=== PATIENT | female | born 1955 | race Caucasian/White ===

== ENCOUNTER 2023-07-18 12:28 | Observation (INO) ==
[2023-07-18 13:07] LABS: Basophils # (auto) 0.06 K/uL (0.00-0.20); Basophils % (auto) 1.1 %; Eosinophils # (auto) 0.32 K/uL (0.00-0.50); Eosinophils % (auto) 6.1 %; Hematocrit (blood only) 46.6 % (37.0-47.0); Hemoglobin 15.3 g/dl (12.0-16.0); Immature Granulocytes # (auto) 0.02 K/uL (0.01-0.20); Immature Granulocytes % (auto) 0.4 %; Lymphocytes # (auto) 1.35 K/uL (1.20-3.40); Lymphocytes % (auto) 25.9 %; Mean Corpuscular Hemoglobin 29.4 pg (25.0-34.0); Mean Corpuscular Hgb Conc 32.8 g/dL (32.0-36.0); Mean Corpuscular Volume 89.4 fL (80.0-100.0); Mean Platelet Volume 10.3 fL (9.4-12.4); Monocytes # (auto) 0.36 K/uL (0.11-0.59); Monocytes % (auto) 6.9 %; Neutrophils # (auto) 3.11 K/uL (1.40-6.50); Neutrophils % (auto) 59.6 %; Platelet Count 226 K/uL (130-400); RDW Coefficient of Variation 13.7 % (11.5-14.5); RDW Standard Deviation 44.5 fL (36.4-46.3); Red Blood Count 5.21 M/uL (4.20-5.40); White Blood Count 5.22 K/ul (4.8-10.8)
[2023-07-18 13:12] LABS: Alanine Aminotransferase 13 U/L (7-52); Albumin Globulin Ratio 1.8 (0.9-2); Albumin Level 4.9 gm/dl (3.4-5.0); Alkaline Phosphatase 34 U/L (34-104); Anion Gap 9 (3-11); Aspartate Aminotransferase 14 U/L (13-39); BUN Creatinine Ratio 24.2 (10-20); Bilirubin,Total 0.6 mg/dl (0.2-1.0); Blood Urea Nitrogen 15 mg/dl (6-23); Calcium 10.3 mg/dl (8.6-10.3); Carbon Dioxide 27 mmol/L (21-32); Chloride 103 mmol/L (98-107); Est GFR (African American) 105.9 ml/min; Est GFR (Non-African American) 91.4 ml/min; Globulin 2.8 gm/dl (2.5-4.0); Glucose 136 mg/dl (70-99(Fasting)); Sodium 139 mmol/L (136-145); Total Protein 7.7 gm/dl (6.0-8.3)
[2023-07-18 13:17] LABS: Troponin I High Sensitivity < 2.3 pg/ml (0-14)
[2023-07-18 14:04] LABS: Partial Thromboplastin Time 27.7 Seconds (21.0-31.0); Prothrombin Time 10.9 Seconds (9.0-12.0)
--- NOTE | 2023-07-18 14:37 | XRay Report ---
XR chest 1V not portable CLINICAL HISTORY: Chest pain, nonspecific TECHNIQUE: Single frontal radiograph of the chest was obtained. Comparison: None available at the time of this dictation. FINDINGS: No lines and tubes are seen. The cardiomediastinal silhouette is normal. The lungs are clear. No evid ence of pleural effusion or pneumothorax. IMPRESSION: No acute chest disease. ACT 112: Negative or not required by law. Electronically signed by: Jimmy Hobbs M.D. 07/18/2023 2:36 PM
[2023-07-18 15:27] LABS: Influenza A virus by PCR Negative (Neg); Influenza B virus by PCR Negative (Neg); RSV by PCR Negative (Neg); SARS CoV2 RNA(COVID-19) Ceph NEGATIVE (Negative)
--- NOTE | 2023-07-18 15:49 | Emergency Department Note ---
Impression & Plan Atypical chest pain ED Provider Note NAME: URMILA ESPITIA AGE: 68 SEX: F : 1955 ARRIVES VIA: Walk-In INFORMANT: Patient, ED PROVIDER(S): Senthil Carr MD CHIEF COMPLAINT: Chest pain HPI: This is a 68-year-old female presenting for chest pain. Patient states that for the past 24 to 48 hours she has noticed pain in the top of her chest. She notes it is bilateral left and right. It is now progressively to the point where it is radiating to bilateral arms as well as going into her neck. She notes some lightheadedness with this. She notes that the pain is actually worse with exertion. She notes she feels her legs are weak as well. She did not note vertigo. She states she is a patient of Dr. Fitzpatrick, cardiology. She has had a stress test in the past 2 years. Otherwise she notes no shortness of breath at rest. No nausea or vomiting. No diarrhea. ROS: See above HPI for pertinent positives & negatives. A total of 10 systems reviewed and were otherwise negative. PAST MEDICAL HISTORY: See Below PAST SURGICAL HISTORY: See Below FAMILY HISTORY: See Below SOCIAL HISTORY: See Below HOME MEDICATIONS: See Below ALLERGIES: See Below VITALS: See Below PHYSICAL EXAMINATION: General: resting comfortably in no acute distress Head: Normocephalic and atraumatic Eyes: Normal inspection, extraocular muscles intact, no conjunctival pallor Ear, nose, throat: Normal external exam Neck: Normal range of motion Respiratory: Patient is in no respiratory distress, lungs clear to auscultation bilaterally Cardiovascular: RRR without murmur appreciated GI: soft, nontender, no guarding or rebound Extremities: pulses intact with good cap refills, no LE pitting edema or calf tenderness Neuro: The patient awake and alert, appropriately conversive,no focal decifits Skin: Warm, dry, and intact MEDICAL DECISION MAKING: This is a 68-year-old female presenting for chest pain. Patient has are concerning for ACS clinically. Her EKG is reviewed and is otherwise reassuring. We will get basic lab work, chest x-ray, further differentiation of pain. Low concern for PE in this patient. Patient's blood work is reassuring, negative troponin, otherwise within normal limits. Patient's chest x-ray reveals no acute process. Due to persistent chest pain and the clinical story, will admit for further ACS rule out and chest pain work-up. Dr. Hatch, hospitalist, does request CTA PE protocol at this time as part of further work-up. We will order this. Triage Nursing notes reviewed. Prior medical records reviewed Vital Signs: reviewed and remarkable for no significant abnormalities Differential diagnosis: ACS, PE, dissection ER treatment provided: See below Diagnostics interpreted by me: Cardiac Monitoring: An order was placed for continuous cardiac monitoring. The monitor shows a rate of 78 with sinus rhythm Laboratory studies: As stated above and show below. Imaging studies: See below. Radiographic imaging was reviewed by myself Past Med/Surg History Medical History (Updated 07/18/23 @ 16:59 by Senthil Carr MD) DM (diabetes mellitus) Hypertension Insomnia Social History Smoking Status: Never smoker Preferred Language: [place] Leonean Feels Safe at Home: Yes Allergies Allergies Allergy/AdvReac Type Severity Reaction Status Date / Time No Known Allergies Allergy Unverified 03/23/14 08:08 Home Meds Home Medications Medication Instructions Recorded Confirmed CHOLECALCIFEROL (Vitamin D) 2,000 unit PO BID #0 tabs 03/23/14 Rosuvastatin Calcium (Crestor) 20 mg PO DAILY ##0 03/23/14 07/18/23 amlodipine 5 mg tablet 5 mg PO DAILY 07/18/23 07/18/23 levothyroxine 88 mcg tablet 88 mcg PO DAILY 07/18/23 07/18/23 (Levoxyl) lisinopril 5 mg tablet 5 mg PO DAILY 07/18/23 07/18/23 lorazepam 1 mg tablet 1 mg PO QPM PRN Insomnia 07/18/23 07/18/23 metformin 1,000 mg tablet 1,000 mg PO BID 07/18/23 07/18/23 metoprolol succinate 25 mg 25 mg PO BID 07/18/23 07/18/23 tablet,extended release 24 hr Results & Data (ED) Vital Signs Vital Signs - 24 hr 07/18/23 12:31 07/18/23 14:36 07/18/23 14:37 Temperature 36.7 C Temperature Source Temporal Artery Scan Pulse Rate 91 H Pulse Rate [Apical] 83 Respiratory Rate 17 16 Respiratory Effort / Characteristics Non-Labored Spontaneous Respiratory Depth Normal Respiratory Pattern Regular Blood Pressure 178/83 H Blood Pressure [Left Arm] 131/81 Blood Pressure Mean 114 Blood Pressure Mean [Left Arm] 97 Blood Pressure Position Sitting Pulse Oximetry 99 97 Oxygen Delivery Method Room Air Room Air Room Air Sepsis Recent Fever Within 48 Hours No Sepsis New/Unexplained Change in Mental Status No Sepsis Action Taken by Nursing No Action Required 07/18/23 14:39 Temperature Temperature Source Pulse Rate 78 Pulse Rate [Apical] Respiratory Rate Respiratory Effort / Characteristics Respiratory Depth Respiratory Pattern Blood Pressure Blood Pressure [Left Arm] Blood Pressure Mean Blood Pressure Mean [Left Arm] Blood Pressure Position Pulse Oximetry Oxygen Delivery Method Sepsis Recent Fever Within 48 Hours Sepsis New/Unexplained Change in Mental Status Sepsis Action Taken by Nursing Laboratory Data 07/18/23 12:43 07/18/23 12:43 Lab Results 07/18/23 07/18/23 07/18/23 Range/Units 12:43 12:43 12:43 WBC 5.22 (4.8-10.8) K/ul RBC 5.21 (4.20-5.40) M/uL Hgb 15.3 (12.0-16.0) g/dl Hct 46.6 (37.0-47.0) % MCV 89.4 (80.0-100.0) fL MCH 29.4 (25.0-34.0) pg MCHC 32.8 (32.0-36.0) g/dL RDW Std Deviation 44.5 (36.4-46.3) fL RDW Coeff of Jamei 13.7 (11.5-14.5) % Plt Count 226 (130-400) K/uL MPV 10.3 (9.4-12.4) fL Immature Gran % (Auto) 0.4 % Neut % (Auto) 59.6 % Lymph % (Auto) 25.9 % [place] % (Auto) 6.9 % Eos % (Auto) 6.1 % Baso % (Auto) 1.1 % Neut # (Auto) 3.11 (1.40-6.50) K/uL Lymph # (Auto) 1.35 (1.20-3.40) K/uL [place] # (Auto) 0.36 (0.11-0.59) K/uL Eos # (Auto) 0.32 (0.00-0.50) K/uL Baso # (Auto) 0.06 (0.00-0.20) K/uL Immature Gran # (Auto) 0.02 (0.01-0.20) K/uL PT 10.9 (9.0-12.0) Seconds INR 1.0 (0.9-1.1) APTT 27.7 (21.0-31.0) Seconds PTT Ratio 1.0 Sodium 139 (136-145) mmol/L Potassium 4.0 (3.5-5.1) mmol/L Chloride 103 (98-107) mmol/L Carbon Dioxide 27 (21-32) mmol/L Anion Gap 9 (3-11) BUN 15 (6-23) mg/dl Creatinine 0.62 (0.6-1.2) mg/dl Est Cr Clr Drug Dosing Not Reportable Est GFR ( Amer) 105.9 ml/min Est GFR (Non-Af Amer) 91.4 ml/min BUN/Creatinine Ratio 24.2 H (10-20) Glucose 136 H (70-99(Fasting)) mg/dl POC Glucose (70-99) mg/dl Calcium 10.3 (8.6-10.3) mg/dl Total Bilirubin 0.6 (0.2-1.0) mg/dl AST 14 (13-39) U/L ALT 13 (7-52) U/L Alkaline Phosphatase 34 (34-104) U/L Troponin I High Sens < 2.3 (0-14) pg/ml Total Protein 7.7 (6.0-8.3) gm/dl Albumin 4.9 (3.4-5.0) gm/dl Globulin 2.8 (2.5-4.0) gm/dl Albumin/Globulin Ratio 1.8 (0.9-2) SARS-CoV-2 (PCR) (Negative) Influenza Type A (PCR) (Neg) Influenza Type B (PCR) (Neg) RSV (RT-PCR) (Neg) 07/18/23 07/18/23 Range/Units 14:30 16:04 WBC (4.8-10.8) K/ul RBC (4.20-5.40) M/uL Hgb (12.0-16.0) g/dl Hct (37.0-47.0) % MCV (80.0-100.0) fL MCH (25.0-34.0) pg MCHC (32.0-36.0) g/dL RDW Std Deviation (36.4-46.3) fL RDW Coeff of Jamie (11.5-14.5) % Plt Count (130-400) K/uL MPV (9.4-12.4) fL Immature Gran % (Auto) % Neut % (Auto) % Lymph % (Auto) % [place] % (Auto) % Eos % (Auto) % Baso % (Auto) % Neut # (Auto) (1.40-6.50) K/uL Lymph # (Auto) (1.20-3.40) K/uL [place] # (Auto) (0.11-0.59) K/uL Eos # (Auto) (0.00-0.50) K/uL Baso # (Auto) (0.00-0.20) K/uL Immature Gran # (Auto) (0.01-0.20) K/uL PT (9.0-12.0) Seconds INR (0.9-1.1) APTT (21.0-31.0) Seconds PTT Ratio Sodium (136-145) mmol/L Potassium (3.5-5.1) mmol/L Chloride (98-107) mmol/L Carbon Dioxide (21-32) mmol/L Anion Gap (3-11) BUN (6-23) mg/dl Creatinine (0.6-1.2) mg/dl Est Cr Clr Drug Dosing Est GFR ( Amer) ml/min Est GFR (Non-Af Amer) ml/min BUN/Creatinine Ratio (10-20) Glucose (70-99(Fasting)) mg/dl POC Glucose 101 H (70-99) mg/dl Calcium (8.6-10.3) mg/dl Total Bilirubin (0.2-1.0) mg/dl AST (13-39) U/L ALT (7-52) U/L Alkaline Phosphatase (34-104) U/L Troponin I High Sens (0-14) pg/ml Total Protein (6.0-8.3) gm/dl Albumin (3.4-5.0) gm/dl Globulin (2.5-4.0) gm/dl Albumin/Globulin Ratio (0.9-2) SARS-CoV-2 (PCR) NEGATIVE (Negative) Influenza Type A (PCR) Negative (Neg) Influenza Type B (PCR) Negative (Neg) RSV (RT-PCR) Negative (Neg) Administered Medications Discontinued Medications Ioversol (Optiray 320 500ml) 115 ml IV ONCE ONE Stop: 07/18/23 16:17 Last Admin: 07/18/23 16:16 Dose: 115 ml Documented By: SNOW Imaging Data Radiologist's Impression: Chest X-Ray 07/18/23 12:34 XR chest 1V not portable CLINICAL HISTORY: Chest pain, nonspecific TECHNIQUE: Single frontal radiograph of the chest was obtained. Comparison: None available at the time of this dictation. FINDINGS: No lines and tubes are seen. The cardiomediastinal silhouette is normal. The lungs are clear. No evidence of pleural effusion or pneumothorax. IMPRESSION: No acute chest disease. ACT 112: Negative or not required by law. Electronically signed by: Jimmy Hobbs M.D. 07/18/2023 2:36 PM Discharge Plan Visit Data Chief Complaint: Chest Pain Stated Complaint: CHEST PAIN ED Provider: Senthil Carr Discharge Problem: Atypical chest pain Forms Stand Alone Forms: My [facility] Prescriptions Prescriptions: No Action CHOLECALCIFEROL (Vitamin D) 1,000 INTER.UNIT tablet 2,000 unit PO BID Qty: 0 Rosuvastatin Calcium (Crestor) 20 MG tablet 20 mg PO DAILY Qty: 0 amlodipine 5 mg tablet 5 mg PO DAILY levothyroxine [Levoxyl] 88 mcg tablet 88 mcg PO DAILY metformin 1,000 mg tablet 1,000 mg PO BID lisinopril 5 mg tablet 5 mg PO DAILY metoprolol succinate 25 mg tablet extended release 24 hr 25 mg PO BID lorazepam 1 mg tablet 1 mg PO QPM PRN (Reason: Insomnia) Referrals Referrals: Patti Carr MD [Primary Care Provider] -
--- NOTE | 2023-07-18 15:53 | History & Physical Report ---
Date of Service July 18, 2023 Assessment & Plan (1) Atypical chest pain: (2) DM (diabetes mellitus): (3) Hypertension: Plan Ms Effie Medina is a 68 year old woman with past medical history remarkable for type II DM, hypothyroidism, GERD, and insomnia presented to [facility] ED due to atypical chest pain. Patient's symptoms are less consistent with ACS after physical examination. Pain is upper chest along jugular notch across bilateral trapezius into bilateral arms, this is occasionally associated with bilateral leg weakness; however, no reports of incontinence reported or persistent numbness and tingling. #Atypical Chest Pain #Chronic neck pain, ?cervical radiculopathy #HTN -Last followed Dr. Morocho 02/2022; 10/2021 exercise stress test negative at that time, EF 60% -Patient with discomfort in front of chest, with pain down both arms, precipitated by exertion, relieved by rest -Given negative cardiac workup, history of negative testing 2021, and physical exam findings, concern for cervical angina 2/2 cervical radiculopathy -Troponin negative, EKG NSR -Continue home Antihypertensives: Amlodipine 5mg, Lisinopril 5mg, Metoprolol XL 25mg BID -Continue daily -Monitor on Telemetry, repeat troponin x2 for ACS r/o -Patient requesting hold on further imaging 2/2 nerves--plan for C-Spine XR in am to eval for foraminal narrowing/signs suspicious of radiculopathic process to ensure proper follow up -Tylenol prn, cyclobenzaprine prn -Carotid duplex to r/o atherosclerotic burden contributing to weakness/symptomology #DMTII, controlled -a1c 5.6% 05/20/2023 -home regimen of Metformin 1000mg BID -ssi with correction factor #HLD -Continue Rosuvastatin 20mg qhs #Hypothyroidism -Continue Levothyroxine 100mcg #Insomnia -Lorazepam qhs DVT SCDs, encourage ambulation per patient request Lytes: replace prn Bowel/GI prn Admission and Anticipated Discharge Date Admission Date: Time spent evaluating patient, direct bedside care, chart review, placing orders, interpretation of diagnostic studies, discussion with consultants, patient, and family members, as well as other required patient management activities is 60 minutes. History of Present Illness Chief Complaint: Chest/neck pain, weakness Primary Care Provider: Patti Carr MD Ms Effie Medina is a 68 year old woman with past medical history remarkable for type II DM, hypothyroidism, GERD, and insomnia presented to [facility] ED due to atypical chest pain. 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 Patient states that during her routine walk (2-3miles daily), she started to feel weakness in her legs and tingling in her bilateral arms. This was associated with a chest pain around the front base of her neck and into bilateral shoulders--after stopping her activity it would resolve. She noted that these symptoms continued and she became worried about cardiac issues. She denies any chest pain at rest, any sensation of palpitations, nausea, vomiting, diaphoresis, orthopnea/PND, edema. She reports dizziness when the discomfort sets in, more lightheaded in quality rather than vertiginous. She denies any focal neuro deficits. Patient does endorse neck discomfort and posterior headache. She denies any visual disturbances, syncope, or dysphagia. Patient is with extreme anxiety, preventing dedicated imaging of head/c-spine. Patient described history of claustrophobia and remarks she would likely need deep sedation before considering due to her fear. In the ED, vitals were notable for BP of 178/83 on presentation, HR of 91 and O2 sat in high 90s on room air. Hypertension resolved upon relaxation and sitting in room. Labs notable for negative troponin, negative resp panel, and stable renal/liver function Imaging unremarkable, CTA EKG NSR No ED interventions performed. Patient to be admitted to med/surg tele for further evaluation and management of atypical chest pain. Allergies Allergy/AdvReac Type Severity Reaction Status Date / Time doxycycline Allergy Intermediate Verified 07/18/23 17:14 amoxicillin [From Augmentin] AdvReac Intermediate Verified 07/18/23 17:14 clavulanic acid AdvReac Intermediate Verified 07/18/23 17:14 [From Augmentin] amoxcillin AdvReac Intermediate Diarrhea Uncoded 07/18/23 17:14 Home Medications Medication Instructions Recorded Confirmed Type CHOLECALCIFEROL (Vitamin D) 2,000 unit PO BID #0 tabs 03/23/14 07/18/23 History Rosuvastatin Calcium (Crestor) 20 mg PO DAILY ##0 03/23/14 07/18/23 History amlodipine 5 mg tablet 5 mg PO DAILY 07/18/23 07/18/23 History levothyroxine 88 mcg tablet 88 mcg PO DAILY 07/18/23 07/18/23 History (Levoxyl) lisinopril 5 mg tablet 5 mg PO BID 07/18/23 07/18/23 History lorazepam 1 mg tablet 1 mg PO QPM PRN Insomnia 07/18/23 07/18/23 History metformin 1,000 mg tablet 1,000 mg PO BID 07/18/23 07/18/23 History metoprolol succinate 25 mg 25 mg PO BID 07/18/23 07/18/23 History tablet,extended release 24 hr Past Med/Surg History Medical History (Updated 07/18/23 @ 16:59 by Senthil Carr MD) DM (diabetes mellitus) Hypertension Insomnia Social History Smoking Status: Never smoker Preferred Language: Cuban Feels Safe at Home: Yes Review of Systems Review of Systems: Constitutional: (-) fever/chills, (-) recent loss of weight, (-) appetite changes, (-) night sweats. Head: (-) headache, (+) dizziness. Eye: (-) blurring of vision, (-) double vision, (-) redness. Ear: (-) hearing loss, (-) discharge, (-) vertigo Nose: (-) discharge, (-) bleeding, (-) congestion, (-) post nasal drip. Throat: (-) sore throat, (-) hoarseness of voice, (-) odynophagia. Cardiovascular: (+) chest pain, (-) palpitations, (-) syncope, (-) orthopnea, (- ) PND, (-) leg swelling. Respiratory: (-) shortness of breath, (-) cough, (-) wheezing, (-) hemoptysis. Neuro: (+) weakness in extremities, (-) numbness, (+) tingling, (-) tremor. Gastrointestinal: (-) belly pain, (-) belly distension, (-) nausea, (-) vomiting, (-) diarrhea, (-) constipation, Genitourinary: (-) hematuria, (-) dysuria, (-) polyuria, (-) hesitancy, (-) frequency, (-) urinary incontinence. Musculoskeletal: (-) myalgia, (+) arthralgia. Skin: (-) rashes. Endocrine: (-) heat/cold intolerance. Physical Exam Physical Exam: GENERAL APPEARANCE: AxOx4, generally well-appearing, anxious/tearful contingent on subject matter (ie MRI) HEENT: NC, AT. MMM. EOMI, clear conjunctiva, oropharynx clear. NECK: +Spurling test bilaterally, pain along trapezius to shoulder with maneuver HEART: Normal rate and regular rhythm, normal S1/S1, no m/r/g LUNGS: CTAB, moving air well. No crackles or wheezes are heard. ABDOMEN: Soft, nontender, nondistended with good bowel sounds heard. BACK: no obvious deformity. EXTREMITIES: Without cyanosis, clubbing or edema. NEUROLOGICAL: Grossly nonfocal. Alert and oriented, moving all 4 extremities. CN not formally tested but appear grossly intact. Observed to ambulate with normal gait. Skin: Warm and dry without any rash. Results & Data Results & Data Vital Signs (Past 12 Hours) Vital Signs Temp Pulse Pulse Resp BP BP Pulse Ox 07/18/23 14:39 78 07/18/23 14:37 83 16 131/81 97 07/18/23 14:36 07/18/23 12:31 36.7 C 91 H 17 178/83 H 99 O2 Del Method 07/18/23 14:39 07/18/23 14:37 Room Air 07/18/23 14:36 Room Air 07/18/23 12:31 Room Air Laboratory Results Short CBC 07/18/23 Range/Units 12:43 WBC 5.22 (4.8-10.8) K/ul Hgb 15.3 (12.0-16.0) g/dl Hct 46.6 (37.0-47.0) % Plt Count 226 (130-400) K/uL BMP 07/18/23 12:43 Sodium 139 Potassium 4.0 Chloride 103 Carbon Dioxide 27 BUN 15 Creatinine 0.62 Glucose 136 H Calcium 10.3 Liver Function 07/18/23 Range/Units 12:43 Total Bilirubin 0.6 (0.2-1.0) mg/dl AST 14 (13-39) U/L ALT 13 (7-52) U/L Alkaline Phosphatase 34 (34-104) U/L Albumin 4.9 (3.4-5.0) gm/dl Diagnostic Findings Chest X-Ray 07/18/23 12:34 XR chest 1V not portable CLINICAL HISTORY: Chest pain, nonspecific TECHNIQUE: Single frontal radiograph of the chest was obtained. Comparison: None available at the time of this dictation. FINDINGS: No lines and tubes are seen. The cardiomediastinal silhouette is normal. The lungs are clear. No evidence of pleural effusion or pneumothorax. IMPRESSION: No acute chest disease. ACT 112: Negative or not required by law. Electronically signed by: Jimmy Hobbs M.D. 07/18/2023 2:36 PM Medications Administered Home Medications Medication Instructions Recorded Confirmed Last Taken CHOLECALCIFEROL (Vitamin D) 2,000 unit PO BID #0 tabs 03/23/14 Unknown Rosuvastatin Calcium (Crestor) 20 mg PO DAILY ##0 03/23/14 07/18/23 Unknown amlodipine 5 mg tablet 5 mg PO DAILY 07/18/23 07/18/23 Unknown levothyroxine 88 mcg tablet 88 mcg PO DAILY 07/18/23 07/18/23 Unknown (Levoxyl) lisinopril 5 mg tablet 5 mg PO DAILY 07/18/23 07/18/23 Unknown lorazepam 1 mg tablet 1 mg PO QPM PRN Insomnia 07/18/23 07/18/23 Unknown metformin 1,000 mg tablet 1,000 mg PO BID 07/18/23 07/18/23 Unknown metoprolol succinate 25 mg 25 mg PO BID 07/18/23 07/18/23 Unknown tablet,extended release 24 hr
[2023-07-18] MEDS ORDERED: OPTIRAY 320 500ml IV ONE (16:16)
--- NOTE | 2023-07-18 17:51 | CT Scan Report ---
CT angio chest PE protocol CLINICAL HISTORY: PE TECHNIQUE: Multidetector row helical CT of the chest was performed with angiographic protocol. Farias l and sagittal reformations were obtained. Coronal and sagittal MIPS were obtained from the axial steven a set and were submitted for review. Automated dose lowering techniques and/or adjustment according to patient size were utilized for this exam. CT DOSE: 427.94 mGy.cm Comparison: Comparison is made to CT chest 03/23/2014 FINDINGS: Lungs and pleura: Normal. Heart and pericardium: Heart size is normal. No pericardial effusion. Vessels: No evidence of pulmonary embolism. Mediastinum and ramonita: Unremarkable. Chest wall and lower neck: Unremarkable. Abdomen: Unremarkable. Bones: Degenerative changes in the thoracic spine. IMPRESSION: No acute abnormality and in particular no evidence of pulmonary embolus. ACT 112: Negative or not required by law. Electronically signed by: Jimmy Hobbs M.D. 07/18/2023 5:50 PM
[2023-07-18] MEDS ORDERED: GLUCOSE 40% GEL 15 GM TUBE PO PRN (19:52)
[2023-07-18] MEDS ORDERED: GLUCOSE 10 TAB/TUBE PO PRN (19:52)
[2023-07-18] MEDS ORDERED: CARBOHYDRATES FOR HYPOGLYCEMIA PO PRN (19:52)
[2023-07-18] MEDS ORDERED: DEXTROSE 50% 50 ML SYRINGE IV PRN (19:52)
[2023-07-18] MEDS ORDERED: GLUCAGON FOR INJ 1 MG VIAL SQ PRN (19:52)
[2023-07-18] MEDS ORDERED: ACETAMINOPHEN 325 MG TAB PO PRN (19:52)
[2023-07-18] MEDS ORDERED: POLYETHYLENE (MIRALAX) 17 GM PACK PO PRN (19:52)
[2023-07-18] MEDS ORDERED: CYCLOBENZAPRINE HCL 10 MG TAB PO PRN (20:44)
[2023-07-18] MEDS ORDERED: LORazepam 1 MG TAB PO SCH (21:00)
[2023-07-18] MEDS ORDERED: ROSUVASTATIN CALCIUM 20 MG TAB PO SCH (21:00)
[2023-07-18] MEDS: lisinopril 5 MG TAB PO SCH (21:09)
[2023-07-18] MEDS: INSULIN ASPART PER UNIT CHARGE SC SCH (21:09)
[2023-07-18] MEDS: METOPROLOL SUCC 25MG EXT REL TAB PO SCH (21:10)
[2023-07-19] MEDS ORDERED: LEVOTHYROXINE SODIUM 88 MCG TABLET PO SCH (06:30)
[2023-07-19 06:35] LABS: Hemoglobin 13.8 g/dl (12.0-16.0); Mean Corpuscular Hemoglobin 29.6 pg (25.0-34.0); Mean Corpuscular Hgb Conc 32.9 g/dL (32.0-36.0); Mean Corpuscular Volume 89.9 fL (80.0-100.0); Mean Platelet Volume 10.3 fL (9.4-12.4); Platelet Count 197 K/uL (130-400); RDW Coefficient of Variation 13.7 % (11.5-14.5); RDW Standard Deviation 45.1 fL (36.4-46.3); Red Blood Count 4.67 M/uL (4.20-5.40); White Blood Count 6.22 K/ul (4.8-10.8)
[2023-07-19 06:54] LABS: BUN Creatinine Ratio 26.3 (10-20); Calcium 9.4 mg/dl (8.6-10.3); Est GFR (African American) 108.9 ml/min; Est GFR (Non-African American) 93.9 ml/min; Potassium 3.9 mmol/L (3.5-5.1)
--- NOTE | 2023-07-19 07:49 | Ultrasound Report ---
CAROTID ARTERY ULTRASOUND CLINICAL HISTORY: weakness, dizziness COMPARISON STUDY: None. TECHNIQUE: Real-time, grayscale, and color Doppler sonography of the carotid and vertebral arteries w as performed. Images were viewed in the transverse and longitudinal planes. FINDINGS: There is mild atherosclerotic plaque. Velocity measurements are listed below. COMMON CAROTID PEAK SYSTOLIC VELOCITY (CM/S): RIGHT 50 LEFT 67 ICA PEAK SYSTOLIC VELOCITY (CM/S): RIGHT 38 LEFT 41 Systolic ratios between the internal to common carotid arteries were normal.' Antegrade flow is seen in the vertebral arteries. The external carotid arteries are patent. IMPRESSION: No evidence of a hemodynamically significant stenosis. ACT 112: Negative or not required by law. Electronically signed by: Solomon Wolf M.D. 07/19/2023 7:48 AM
[2023-07-19] MEDS: lisinopril 5 MG TAB PO SCH (08:12)
[2023-07-19] MEDS: METOPROLOL SUCC 25MG EXT REL TAB PO SCH (08:12)
[2023-07-19] MEDS ORDERED: amLODIPine BESYLATE 5 MG TAB PO SCH (09:00)
--- NOTE | 2023-07-19 09:49 | Discharge Summary ---
Discharge Summary Date of Service July 19, 2023 Notes For Next Care Provider Consider PT, injections and ortho/spine referral for further evaluation of cervical disc disease and pain relief. Medication Changes From Visit None Admission HPI Per Admitting Provider Ms Effie Medina is a 68 year old woman with past medical history remarkable for type II DM, hypothyroidism, GERD, and insomnia presented to [facility] ED due to atypical chest pain. 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 Patient states that during her routine walk (2-3miles daily), she started to feel weakness in her legs and tingling in her bilateral arms. This was associated with a chest pain around the front base of her neck and into bilateral shoulders--after stopping her activity it would resolve. She noted that these symptoms continued and she became worried about cardiac issues. She denies any chest pain at rest, any sensation of palpitations, nausea, vomiting, diaphoresis, orthopnea/PND, edema. She reports dizziness when the discomfort sets in, more lightheaded in quality rather than vertiginous. She denies any focal neuro deficits. Patient does endorse neck discomfort and posterior headache. She denies any visual disturbances, syncope, or dysphagia. Patient is with extreme anxiety, preventing dedicated imaging of head/c-spine. Patient described history of claustrophobia and remarks she would likely need deep sedation before considering due to her fear. In the ED, vitals were notable for BP of 178/83 on presentation, HR of 91 and O2 sat in high 90s on room air. Hypertension resolved upon relaxation and sitting in room. Labs notable for negative troponin, negative resp panel, and stable renal/liver function Imaging unremarkable, CTA EKG NSR No ED interventions performed. Patient to be admitted to med/surg tele for further evaluation and management of atypical chest pain. Admission Exam Per Admitting Provider GENERAL APPEARANCE: AxOx4, generally well-appearing, anxious/tearful contingent on subject matter (ie MRI) HEENT: NC, AT. MMM. EOMI, clear conjunctiva, oropharynx clear. NECK: +Spurling test bilaterally, pain along trapezius to shoulder with maneuver HEART: Normal rate and regular rhythm, normal S1/S1, no m/r/g LUNGS: CTAB, moving air well. No crackles or wheezes are heard. ABDOMEN: Soft, nontender, nondistended with good bowel sounds heard. BACK: no obvious deformity. EXTREMITIES: Without cyanosis, clubbing or edema. NEUROLOGICAL: Grossly nonfocal. Alert and oriented, moving all 4 extremities. CN not formally tested but appear grossly intact. Observed to ambulate with normal gait. Skin: Warm and dry without any rash. Principal Dx & Hospital Course #1 = Principal Diagnosis (1) Atypical chest pain: (2) DM (diabetes mellitus): (3) Hypertension: Plan Ms Effie Medina is a 68 year old woman with past medical history remarkable for type II DM, hypothyroidism, GERD, and insomnia who was admitted for ACS rule- out. Presented to [facility] ED due to atypical chest pain. Patient's symptoms are less consistent with ACS after further workup. Pain is in upper chest along jugular notch across bilateral trapezius into bilateral arms. This is occasionally associated with bilateral leg weakness; however, no reports of incontinence reported or persistent numbness and tingling. Atypical Chest Pain Chronic neck pain cervical radiculopathy HTN -presented to [facility] ED with chest pain. -Patient with discomfort in front of chest, with pain down both arms, precipitated by exertion, relieved by rest -EKG NSR, hs-troponins NEGATIVE x3 -Chest XRAY and chest CTA with no acute disease, carotid dopplers with no signifcant stenosis -Cervical spine xray notes moderate DDD at c6-c7. -Last followed with Dr. Morocho 02/2022; 10/2021 exercise stress test negative at that time, Echo showed EF 60% -Given negative cardiac workup at this visit, history of negative stress testing in 2021, and physical exam findings, concern for cervical radiculopathy -Continue home Antihypertensives: Amlodipine 5mg, Lisinopril 5mg, Metoprolol XL 25mg BID -Tylenol prn, cyclobenzaprine prn - pt stated that she prefers not to use medications to help, declined medications on discharge. -PCP follow up, consider PT, injections and ortho/spine referral for further evaluation of cervical disc disease and pain relief. DMTII, controlled -a1c 5.6% 05/20/2023 -continue home regimen of Metformin 1000mg BID HLD -Continue Rosuvastatin 20mg qhs Hypothyroidism -Continue Levothyroxine 100mcg Insomnia -Lorazepam qhs Discharge Exam General: Alert, oriented. No acute distress Skin: No noted rashes or bruises Psych: Appropriate mood and affect Neuro/MSK: tender to palpation over anterior right shoulder joint HEENT: NC/AT Chest: Nontender to palpation. CV: RRR Resp: Breath sounds clear bilaterally, no increased effort of breathing Abdomen: Soft, nontender, nondistended Extremities: No edema in lower extremities bilaterally. Updated Medication List Medication Instructions Recorded Confirmed Type CHOLECALCIFEROL (Vitamin D) 2,000 unit PO BID #0 tabs 03/23/14 07/18/23 History Rosuvastatin Calcium (Crestor) 20 mg PO DAILY ##0 03/23/14 07/18/23 History amlodipine 5 mg tablet 5 mg PO DAILY 07/18/23 07/18/23 History levothyroxine 88 mcg tablet 88 mcg PO DAILY 07/18/23 07/18/23 History (Levoxyl) lisinopril 5 mg tablet 5 mg PO BID 07/18/23 07/18/23 History lorazepam 1 mg tablet 1 mg PO QPM PRN Insomnia 07/18/23 07/18/23 History metformin 1,000 mg tablet 1,000 mg PO BID 07/18/23 07/18/23 History metoprolol succinate 25 mg 25 mg PO BID 07/18/23 07/18/23 History tablet,extended release 24 hr Hospital Stay Data Consultations 07/18/23 16:06 ED Decision to Admit Stat Diagnostic Imagining Performed 07/18/23 15:54 CT for pulmonary embolism PE [CT angio chest PE protocol] Stat 07/18/23 17:02 US carotid doppler BI Routine Chest X-Ray 07/18/23 12:34 XR chest 1V not portable CLINICAL HISTORY: Chest pain, nonspecific TECHNIQUE: Single frontal radiograph of the chest was obtained. Comparison: None available at the time of this dictation. FINDINGS: No lines and tubes are seen. The cardiomediastinal silhouette is normal. The lungs are clear. No evidence of pleural effusion or pneumothorax. IMPRESSION: No acute chest disease. ACT 112: Negative or not required by law. Electronically signed by: Jimmy Hobbs M.D. 07/18/2023 2:36 PM Chest CTA 07/18/23 15:54 CT angio chest PE protocol CLINICAL HISTORY: PE TECHNIQUE: Multidetector row helical CT of the chest was performed with angiographic protocol. Coronal and sagittal reformations were obtained. Coronal and sagittal MIPS were obtained from the axial data set and were submitted for review. Automated dose lowering techniques and/or adjustment according to patient size were utilized for this exam. CT DOSE: 427.94 mGy.cm Comparison: Comparison is made to CT chest 03/23/2014 FINDINGS: Lungs and pleura: Normal. Heart and pericardium: Heart size is normal. No pericardial effusion. Vessels: No evidence of pulmonary embolism. Mediastinum and ramonita: Unremarkable. Chest wall and lower neck: Unremarkable. Abdomen: Unremarkable. Bones: Degenerative changes in the thoracic spine. IMPRESSION: No acute abnormality and in particular no evidence of pulmonary embolus. ACT 112: Negative or not required by law. Electronically signed by: Jimmy Hobbs M.D. 07/18/2023 5:50 PM Carotid Doppler Study 07/18/23 17:02 CAROTID ARTERY ULTRASOUND CLINICAL HISTORY: weakness, dizziness COMPARISON STUDY: None. TECHNIQUE: Real-time, grayscale, and color Doppler sonography of the carotid and vertebral arteries was performed. Images were viewed in the transverse and longitudinal planes. FINDINGS: There is mild atherosclerotic plaque. Velocity measurements are listed below. COMMON CAROTID PEAK SYSTOLIC VELOCITY (CM/S): RIGHT 50 LEFT 67 ICA PEAK SYSTOLIC VELOCITY (CM/S): RIGHT 38 LEFT 41 Systolic ratios between the internal to common carotid arteries were normal.' Antegrade flow is seen in the vertebral arteries. The external carotid arteries are patent. IMPRESSION: No evidence of a hemodynamically significant stenosis. ACT 112: Negative or not required by law. Electronically signed by: Solomon Wolf M.D. 07/19/2023 7:48 AM Cervical Spine X-Ray 07/19/23 06:00 XR cervical spine 2 or 3V CLINICAL HISTORY: chronic neck pain, c/f cervical radiculopathy COMPARISON STUDY: No previous studies for comparison. FINDINGS: There is straightening of the cervical lordosis. Vertebral body heights are maintained. There is moderate disc space narrowing and osteophytosis at C6-C7. Otherwise, mild multilevel degenerative changes are present. There is no cervical spine fracture. IMPRESSION: 1. No cervical spine fracture or subluxation. 2. Moderate degenerative disc disease at C6-C7. Otherwise, mild multilevel degenerative changes within the cervical spine. ACT 112: Negative or not required by law. Electronically signed by: Solomon Wolf M.D. 07/19/2023 10:28 AM Discharge Instructions Given to Patient (Per Discharging Provider) Ms. Medina, You were admitted out of concern that your chest pain was heart related. Through testing done, we determined that your chest pain was not related to your heart but might be the result of arthritic changes in the spine of your neck called degenerative disc disease. Medications and activity such as physical therapy exercises can often provide relief of your symptoms. We recommend following up with your primary care provider for further evaluation and if necessary, they can also refer you to a specialist to help. You stated that you would prefer to not use medications to help and so none are being provided on discharge for the pain. However, should you change your mind about this your primary care provider will be able to help and can consider medications such as muscle relaxers and other pain relievers or PT and spinal injections to help. Please resume taking your home medications as prescribed. It was a pleasure taking care of you during your time here. Total Time Total Time Spent Total Time Spent (In Minutes): > 30 minutes
[2023-07-19] MEDS: INSULIN ASPART PER UNIT CHARGE SC SCH ×2 (10:12→12:31)
--- NOTE | 2023-07-19 10:29 | XRay Report ---
XR cervical spine 2 or 3V CLINICAL HISTORY: chronic neck pain, c/f cervical radiculopathy COMPARISON STUDY: No previous studies for comparison. FINDINGS: There is straightening of the cervical lordosis. Vertebral body heights are maintained. The re is moderate disc space narrowing and osteophytosis at C6-C7. Otherwise, mild multilevel degenerati ve changes are present. There is no cervical spine fracture. IMPRESSION: 1. No cervical spine fracture or subluxation. 2. Moderate degenerative disc disease at C6-C7. Otherwise, mild multilevel degenerative changes withi n the cervical spine. ACT 112: Negative or not required by law. Electronically signed by: Solomon Wolf M.D. 07/19/2023 10:28 AM
--- NOTE | 2023-07-20 06:56 | Electrocardiogram Report ---
Test Reason : Blood Pressure : / mmHG Vent. Rate : 082 BPM Atrial Rate : 082 BPM P-R Int : 150 ms QRS Dur : 070 ms QT Int : 370 ms P-R-T Axes : 022 -13 015 degrees QTc Int : 432 ms Normal sinus rhythm Normal ECG When compared with ECG of 23-MAR-2014 08:08, No significant change Confirmed by Chong Varner ([id number]) on 07/20/2023 6:55:51 AM Referred By: REFERRED SELF Confirmed By:Chong Varner
--- NOTE | 2023-08-12 07:52 | Coding Query ---
A supporting diagnosis is required for the test/procedure performed on this patient in order for us to be reimbursed by the patient's insurance. Please provide a supporting diagnosis for the following test/procedure listed below next to the test name along with your signature. *If there is no additional diagnosis for this patient that would support the following test/procedure please document that below next to the test/procedure. Test(s)/Procedure(s) that require a supporting diagnosis: * [id number] CAROTID DOPPLER DIAGNOSIS: I20.9 Angina radiating to neck DATE OF SERVICE: 07/18/23 Provider Signature: My Hatch MD Date: 08/12/[address] [facility] Information Management Once completed, please kindly fax back to [phone] For questions please call [phone] [facility]
== END 2023-07-19 13:45 | disposition home or self-care (01) ==
LOC: ED 12:28 → EDINP 12:28 → SUATTDRO 17:01 → EDINP 07-19 02:53 → 2W 07-19 03:40
DX: E11.9 Type 2 diabetes mellitus without complications; Z79.890 Hormone replacement therapy; R07.89 Other chest pain; I20.9 Angina pectoris, unspecified; Z79.899 Other long term (current) drug therapy; Z88.0 Allergy status to penicillin; K21.9 Gastro-esophageal reflux disease without esophagitis; Z79.84 Long term (current) use of oral hypoglycemic drugs; Z88.8 Allergy status to other drugs, medicaments and biological substances; G47.00 Insomnia, unspecified; E03.9 Hypothyroidism, unspecified; I10 Essential (primary) hypertension; E78.5 Hyperlipidemia, unspecified; M54.12 Radiculopathy, cervical region